=== PATIENT | female | born 1940 | race Caucasian/White ===

== ENCOUNTER 2017-07-28 18:02 | Emergency (ER) | payer MEDICARE, BC ==
[~2017-07-28] VITALS: Ht 165.1 cm; Wt 65.8 kg
[2017-07-28] MEDS ORDERED: ASPI81TA44 PO (18:08)
[2017-07-28] MEDS ORDERED: PHENYLEPHRINE 1% (EXTRA STR) NASAL SPRAY NS ONE ×2 (18:10→18:15)
--- NOTE | 2017-07-28 18:44 | NUR ---
REMOVED THE NOSE CLAMP. NOSE BLEED STOPPED.DR. MCLAUGHLIN AT BESIDE TALKINT TO PT AND
--- NOTE | 2017-07-28 18:46 | NUR ---
Patient discharged to home in stable conditon. Written and verbal after care instructions given. Patient verbalizes understanding of instructions.PT WALKS IN STEADY GAIT, DENIES DIZZINESS.
== END 2017-07-28 18:48 | disposition home or self-care (01) ==
LOC: ER 18:04
DX: R04.0 Epistaxis (principal); J45.909 Unspecified asthma, uncomplicated; Z79.82 Long term (current) use of aspirin; Z85.3 Personal history of malignant neoplasm of breast
CPT/HCPCS: A4663